=== PATIENT | female | born 1980 | race American Indian/Alaskan Native ===

== ENCOUNTER 2020-04-16 11:22 | Inpatient (IN) | payer OTHER, SELFPAY ==
[2020-04-16 13:48] LABS: Basophils % (Auto) 0.4 % (0.0-1.8); Eosinophils # (Auto) 0.1 K/mm3 (0.0-0.4); Hematocrit 31.6 % (30.3-42.9); Hemoglobin 10.3 gm/dl (10.1-14.3); Lymphocytes # (Auto) 1.3 K/mm3 (1.2-5.4); Lymphocytes % (Auto) 17.8 % (13.4-35.0); Mean Corpuscular HGB Conc 33 % (30-34); Mean Corpuscular Volume 71 fl (79-97); Monocytes # (Auto) 0.7 K/mm3 (0.0-0.8); Monocytes % (Auto) 9.7 % (0.0-7.3); Platelet Count 213 K/mm3 (140-440); Red Blood Count 4.45 M/mm3 (3.65-5.03); Red Cell Distribution Width 17.4 % (13.2-15.2)
[2020-04-16 14:18] LABS: Amphetamine Screen,Urine Negative; Benzodiazepines Screen,Urine Negative; Cannabinoid Screen,Urine Negative; Cocaine Screen,Urine Negative; Methadone Screen,Urine Negative; Opiate Screen,Urine Negative
[2020-04-16] MEDS ORDERED: OXYTOCIN 10 UNIT/1 ML INJ IM PRN (14:21)
[2020-04-16] MEDS ORDERED: ePHEDrine SULFATE 50 MG/1 ML INJ IV PRN ×2 (14:21→17:36)
[2020-04-16] MEDS ORDERED: CARBOPROST TROMETHAMINE 250 MCG/1 ML INJ IM PRN (14:21)
[2020-04-16] MEDS ORDERED: fentaNYL 100 MCG/2 ML INJ IV PRN (14:21)
[2020-04-16] MEDS ORDERED: ONDANSETRON 4 MG/2 ML INJ IV PRN ×2 (14:21→17:36)
[2020-04-16] MEDS ORDERED: ACETAMINOPHEN 325 MG TAB PO PRN (14:21)
[2020-04-16] MEDS ORDERED: TERBUTALINE 1 MG/1 ML INJ SUB-Q PRN ×2 (14:21→17:00)
[2020-04-16] MEDS ORDERED: MINERAL OIL 30 ML ORAL LIQD PO PRN (14:21)
[2020-04-16] MEDS ORDERED: miSOPROStol 200 MCG TAB PR PRN (14:21)
[2020-04-16] MEDS ORDERED: METHYLERGONOVINE MALEATE 0.2 MG/ML VIAL IM PRN (14:21)
[2020-04-16] MEDS ORDERED: LIDOCAINE (2%) 20 MG/1 ML VIAL 20 ML MDV INFILTRATI ONE ×2 (14:21→20:14)
--- NOTE | 2020-04-16 14:53 | History and Physical Report ---
History of Present Illness Date of examination: 04/16/20 Date of admission: 04/16/20 14:40 Chief complaint: IUP @37.3 admission for active labor, "I started having contractions every 5 minutes since this morning" History of present illness: Pt poor historian, limited history of present illness received. Pt unsure exactly which doctor or practice location she received care. Reports 3- 4 visits prior to stopping care in November Past History Past Medical History: asthma (pt reports one episode in 2017- Dx at that time with "pollen induced asthma", no ongoing care or Rx) Past Surgical History: no surgical history DISTRIBUTION ANALYST History: other (denies) Family/Genetic History: diabetes (maternal mother and aunt) Social history: no significant social history - Obstetrical History Expected Date of Delivery: 05/04/20 Actual Gestation: 37 Week(s) 3 Day(s) : 4 Para: 3 Hx # Term Pregnancies: 3 ( x3, denies delivery complications/PPH) Number of Pregnancies: 0 Spontaneous Abortions: 0 Induced : 0 Number of Living Children: 3 #1 Infant Gender: Female year: 2[birth year] ([place], [place]) Birthweight: 3.118 kg Method of Delivery: Vaginal (with epidural) Gestational age at delivery: 37 Complications: perineal laceration (with repair) #2 Gender: Female year: 2,[birth year] ([facility]) Birthweight: 3.09 kg Method of Delivery: Vaginal (with epidural) Gestational age at delivery: 36 Complications: perineal laceration (with repair) #3 Infant Gender: Female year: 2,[birth year] ([facility]) Birthweight: 2.722 kg Method of Delivery: Vaginal (with epidural) Gestational age at delivery: 36 Complications: perineal laceration (no repair needed) Medications and Allergies Allergies Allergy/AdvReac Type Severity Reaction Status Date / Time No Known Allergies Allergy Unverified 04/16/20 12:37 Active Meds: Active Medications Acetaminophen (Tylenol) 650 mg PO Q4H PRN PRN Reason: Pain, Mild (1-3) Carboprost Tromethamine (Hemabate) 250 mcg IM ONCE PRN PRN Reason: Uterine Bleeding Ephedrine Sulfate (Ephedrine Sulfate) 10 mg IV Q2M PRN PRN Reason: Hypotension Fentanyl (Sublimaze) 100 mcg IV Q2H PRN PRN Reason: Pain,Severe (7-10) LABOR PAIN Lactated Ringer's (Lactated Ringers) 1,000 mls @ 125 mls/hr IV DIRECT FAVIAN Oxytocin/Sodium Chloride (Pitocin/Ns 30 Unit/500ml) 30 units in 500 mls @ 40 mls/hr IV TITR FAVIAN; Protocol Methylergonovine Maleate (Methergine) 0.2 mg IM ONCE PRN PRN Reason: Uterine Bleeding Mineral Oil (Mineral Oil) 30 ml PO QHS PRN PRN Reason: Constipation Misoprostol (Cytotec) 800 mcg SC ONCE PRN PRN Reason: Uterine Bleeding Ondansetron HCl (Zofran) 4 mg IV Q8H PRN PRN Reason: Nausea And Vomiting Oxytocin (Pitocin) 10 unit IM ONCE PRN PRN Reason: Uterine Bleeding Terbutaline Sulfate (Brethine) 0.25 mg SUB-Q ONCE PRN PRN Reason: Hyperstimulation/Hypertonicity - Vital Signs Vital signs: Vital Signs Temp Resp 98.1 F 20 04/16/20 12:36 04/16/20 12:36 Temp Pulse Resp BP Pulse Ox 98.1 F 111 H 20 133/83 99 04/16/20 12:36 04/16/20 14:44 04/16/20 12:36 04/16/20 12:50 04/16/20 14:44 - Physical Exam Cardiovascular: Regular rate, Normal S1, Normal S2 Lungs: Positive: Clear to auscultation, Normal air movement Abdomen: Positive: normal appearance, soft Genitourinary (Female): Positive: normal external genitalia, normal perenium Vulva: both: normal Vagina: Positive: normal moisture Uterus: Positive: normal size, normal contour Anus/Rectum: Positive: normal perianal skin Extremities: Positive: normal - Obstetrical FHR: auscultation normal, category 1 Uterine Contraction Monitor Mode: External Cervical Dilatation: 5 (per RN) Uterine Contraction Frequency (min): 5 Uterine Contraction Pattern: Regular Uterine Contraction Intensity: Mild Results Result Diagrams: 04/16/20 13:00 Abnormal lab results 04/16/20 Range/Units 13:00 MCV 71 L (79-97) fl MCH 23 L (28-32) pg RDW 17.4 H (13.2-15.2) % [place] % (Auto) 9.7 H (0.0-7.3) % Seg Neutrophils % 70.1 H (40.0-70.0) % All other labs normal. Assessment and Plan Pt reports insignificant care course at [facility]" until November. Reports WILMA: 05/04/2020. Unable to locate facility to request pt records. Pt reports limited care due to fear of terrie COVID- 19. Reports labs and ultrasound mid- WNL. labs drawn and sent. weaving inspector reports SVE changed; now /-2 s/p 1 hour ambulation with contractions now Q5 mins. Plan to obtain US for EFW and presentation, treat GBS prophylactically, and anticipate delivery - Patient Problems (1) 37 weeks gestation of Current Visit: Yes Status: Acute (2) Active labor Current Visit: Yes Status: Acute Plan to address problem: epidural PRN, continue to treat GBS prophylactically; anticipate delivery (3) Supervision of with insufficient care Current Visit: Yes Status: Acute Plan to address problem: Labs sent. Plan to obtain US for EFW and presentation, treat GBS prophylactically, and anticipate delivery
[2020-04-16] MEDS ORDERED: OXYTOCIN DRIP 30 UNITS/500 ML BAG IV SCH (15:00)
[2020-04-16 15:02] LABS: Hepatitis C Virus Antibody Non-Reactive (NonReactive)
--- NOTE | 2020-04-16 16:48 | Progress Note ---
Assessment and Plan A:Patient IUP at 37.3 weeks gestation Cat 1 strip SVE 6.5/80/-3 soft midline BS ultrasound presentation vertex P: GBS treatment AMP q 4hrs IV LR@125cc/hr epidural at patients request Augmentation PRN with pitocin continuing monitoring anticipate vaginal delivery Subjective - Subjective Date of service: 04/16/20 (Active Labor) Patient reports: contractions Objective - Vital Signs Vital Signs: Vital Signs - 12hr 04/16/20 04/16/20 04/16/20 12:36 12:50 12:51 Temperature 98.1 F Pulse Rate 108 H 101 H Respiratory 20 Rate Blood Pressure 133/83 O2 Sat by Pulse 98 Oximetry 04/16/20 04/16/20 04/16/20 12:56 13:01 13:06 Temperature Pulse Rate 104 H 110 H 106 H Respiratory Rate Blood Pressure O2 Sat by Pulse 99 99 100 Oximetry 04/16/20 04/16/20 04/16/20 13:11 13:16 14:24 Temperature Pulse Rate 105 H 101 H 124 H Respiratory Rate Blood Pressure O2 Sat by Pulse 100 96 79 L Oximetry 04/16/20 04/16/20 04/16/20 14:29 14:34 14:39 Temperature Pulse Rate 114 H 114 H 111 H Respiratory Rate Blood Pressure O2 Sat by Pulse 99 97 99 Oximetry 04/16/20 04/16/20 04/16/20 14:44 14:49 14:54 Temperature Pulse Rate 111 H 107 H 109 H Respiratory Rate Blood Pressure O2 Sat by Pulse 99 100 99 Oximetry 04/16/20 04/16/20 04/16/20 14:59 15:04 15:09 Temperature Pulse Rate 104 H 100 H 98 H Respiratory Rate Blood Pressure O2 Sat by Pulse 99 97 99 Oximetry 04/16/20 04/16/20 04/16/20 15:14 15:19 16:12 Temperature Pulse Rate 110 H 109 H 105 H Respiratory Rate Blood Pressure 136/88 O2 Sat by Pulse 98 99 100 Oximetry 04/16/20 04/16/20 04/16/20 16:17 16:22 16:27 Temperature Pulse Rate 109 H 109 H 113 H Respiratory Rate Blood Pressure O2 Sat by Pulse 100 100 100 Oximetry 04/16/20 04/16/20 16:32 16:37 Temperature Pulse Rate 119 H 106 H Respiratory Rate Blood Pressure O2 Sat by Pulse 100 99 Oximetry - Exam Breasts: deferred Cardiovascular: Regular rate Lungs: Normal air movement Abdomen: Present: normal appearance, soft Vulva: both: normal FHR: category 1 Uterine Contraction Monitor Mode: External Cervical Dilatation: 6.5 Cervical Effacement Percentage: 80 station: -3 Uterine Contraction Frequency (min): 7 Uterine Contraction Duration: 90-120 Uterine Contraction Pattern: Regular Uterine Tone Measurement Phase: Resting Uterine Contraction Intensity: Moderate Extremities: normal - Labs Labs: Abnormal Labs 04/16/20 13:00 MCV 71 L MCH 23 L RDW 17.4 H [place] % (Auto) 9.7 H Seg Neutrophils % 70.1 H Laboratory Results - last 24 hr 04/16/20 04/16/20 04/16/20 13:00 13:00 13:00 WBC 7.1 RBC 4.45 Hgb 10.3 Hct 31.6 MCV 71 L MCH 23 L MCHC 33 RDW 17.4 H Plt Count 213 Lymph % (Auto) 17.8 [place] % (Auto) 9.7 H Eos % (Auto) 2.0 Baso % (Auto) 0.4 Lymph # (Auto) 1.3 [place] # (Auto) 0.7 Eos # (Auto) 0.1 Baso # (Auto) 0.0 Seg Neutrophils % 70.1 H Seg Neutrophils # 5.0 Urine Opiates Screen Urine Methadone Screen Ur Barbiturates Screen Ur Phencyclidine Scrn Ur Amphetamines Screen U Benzodiazepines Scrn Urine Cocaine Screen U Marijuana (THC) Screen Drugs of Abuse Note Syphilis IgG Antibody Hep Bs Antigen Non-reactive Hepatitis C Antibody Non-reactive HIV 1&2 Antibody Rapid HIV P24 Antigen Rubella IgG Antibody Immune Blood Type Antibody Screen 04/16/20 04/16/20 04/16/20 13:00 13:00 13:20 WBC RBC Hgb Hct MCV MCH MCHC RDW Plt Count Lymph % (Auto) [place] % (Auto) Eos % (Auto) Baso % (Auto) Lymph # (Auto) [place] # (Auto) Eos # (Auto) Baso # (Auto) Seg Neutrophils % Seg Neutrophils # Urine Opiates Screen Negative Urine Methadone Screen Negative Ur Barbiturates Screen Negative Ur Phencyclidine Scrn Negative Ur Amphetamines Screen Negative U Benzodiazepines Scrn Negative Urine Cocaine Screen Negative U Marijuana (THC) Screen Negative Drugs of Abuse Note Disclamer Syphilis IgG Antibody Nonreactive Hep Bs Antigen Hepatitis C Antibody HIV 1&2 Antibody Rapid Non react HIV P24 Antigen Non react Rubella IgG Antibody Blood Type Antibody Screen 04/16/20 13:20 WBC RBC Hgb Hct MCV MCH MCHC RDW Plt Count Lymph % (Auto) [place] % (Auto) Eos % (Auto) Baso % (Auto) Lymph # (Auto) [place] # (Auto) Eos # (Auto) Baso # (Auto) Seg Neutrophils % Seg Neutrophils # Urine Opiates Screen Urine Methadone Screen Ur Barbiturates Screen Ur Phencyclidine Scrn Ur Amphetamines Screen U Benzodiazepines Scrn Urine Cocaine Screen U Marijuana (THC) Screen Drugs of Abuse Note Syphilis IgG Antibody Hep Bs Antigen Hepatitis C Antibody HIV 1&2 Antibody Rapid HIV P24 Antigen Rubella IgG Antibody Blood Type B POSITIVE Antibody Screen Negative
[2020-04-16] MEDS ORDERED: AMPICILLIN/NS 2 GM/100 ML 2 GM/100 ML BAG IV SCH (17:00)
[2020-04-16] MEDS: LACTATED RINGERS 1,000 ML IV SCH ×2 (17:05→18:26)
[2020-04-16] MEDS ORDERED: NalbUPHINE 10 MG/1 ML INJ IV PRN (17:36)
[2020-04-16] MEDS ORDERED: diphenhydrAMINE 50 MG/ML VIAL IV PRN (17:36)
[2020-04-16] MEDS ORDERED: NALOXONE 2 MG/2 ML INJ IV PRN (17:36)
[2020-04-16] MEDS ORDERED: fentaNYL-BUPIV 2 MCG/ML-0.125% 200 MCG/100 ML BAG EPIDURAL SCH (18:00)
--- NOTE | 2020-04-16 18:20 | Anesthesia Consultation ---
Anesthesia Consult and Med Hx Date of service: 04/16/20 - Airway Anesthetic Teeth Evaluation: Good ROM Head & Neck: Adequate Mental/Hyoid Distance: Adequate Mallampati Class: Class III Intubation Access Assessment: Probably Good - Pulmonary Exam CTA: Yes - Cardiac Exam Cardiac Exam: RRR - Pre-Operative Health Status ASA Pre-Surgery Classification: ASA2 Proposed Anesthetic Plan: Epidural - Pulmonary Hx Smoking: No Hx Asthma: Yes (last used inhaler 2016) COPD: No Hx Pneumonia: No Hx Sleep Apnea: No - Cardiovascular System Hx Hypertension: No Hx Heart Attack/AMI: No Hx Angina: No - Central Nervous System Hx Seizures: No Hx Psychiatric Problems: No - Gastrointestinal Hx Gastroesophageal Reflux Disease: No - Endocrine Hx Renal Disease: No Hx End Stage Renal Disease: No Hx Insulin Dependent Diabetes: No Hx Non-Insulin Dependent Diabetes: No Hx Hypothyroidism: No Hx Hyperthyroidism: No - Hematic Hx Anemia: No Hx Sickle Cell Disease: No - Other Systems Hx Alcohol Use: No
--- NOTE | 2020-04-16 18:56 | Progress Note ---
Labor Epidural - Labor Epidural Start Time: 18:42 Stop Time: 18:55 Performed by:: RK CONNORS Procedure: Patient is requesting a laboring epidural for laboring pain. Patient IDed, H&P reviewed, all questions and concerns were answered, and consent was signed. Timeout was performed at bedside. Patient in sitting position. Sterile prep and drape was performed. 3ml of 1% lidocaine skin wheal at L[3]- L [4]. 18- gauge Touhy epidural needle was advanced to loss of resistance with air technique. Negative CSF negative blood. Epidural catheter advanced to [12] centimeters. [-] Aspiration [-] test dose. Sterile dressing applied. Patient tolerated procedure.
[2020-04-16 20:13] LABS: Alanine Aminotransferase 11 units/L (7-56); Uric Acid 4.8 mg/dL (3.5-7.6)
[2020-04-16] MEDS ORDERED: AMPICILLIN/NS 1 GM/50 ML 1 GM/50 ML BAG IV SCH (21:00)
--- NOTE | 2020-04-16 21:34 | Procedure Note ---
OB Delivery Note - Delivery Date of Delivery: 04/16/20 () Surgeon: OVI BRONSON (Shraddha Smith, [facility]) Estimated blood loss: 200cc - Vaginal Delivery presentation: vertex Delivery position: OA Intrapartum events: no care Delivery induction: none Delivery monitor: external FHT, external uterine Route of delivery: Delivery placenta: spontaneous (Intact) Delivery cord: 3 umbilical vessels Episiotomy: none Delivery laceration: none Delivery comments: of live female, 3291gm and 8/9. Delivered OA,no nuchal cord. Body delivered without difficulty. Cord clamped and cut after cessation. Baby [id number] then handed to DAMIEN nurse for assessment. Placenta delivered spontaneously and intact. Fundus firm, with minimum bleeding. Placenta appears intact with 3 vessel cord. Perineum and vagina inspected no lacerations. EBL 200ml hemostatis patient tolerated procedure well. Mom and baby stable and recovering in LDR. - A at 1 minute: 8 at 5 minutes: 9 Gender: Female (Baby Girl [place] 7lbs 4oz 19in in length)
--- NOTE | 2020-04-16 21:40 | Ultrasound Report ---
ULTRASOUND OBSTETRIC LIMITED INDICATION / CLINICAL INFORMATION: presentation. Clinical Gestational Age (GA): 37.3 weeks.days COMPARISON: None available. FINDINGS: HEART RATE (beats per minute): 135 PRESENTATION: Cephalic. ADDITIONAL FINDINGS: None. IMPRESSION: Single living intrauterine gestation in cephalic position. Signer Name: Ulises Szymanski MD Signed: 04/16/2020 9:39 PM Workstation Name: [id number]
[2020-04-17] MEDS ORDERED: diphenhydrAMINE 25 MG CAP PO PRN (03:10)
[2020-04-17] MEDS ORDERED: ACETAMINOPHEN 325 MG TAB PO PRN (03:10)
[2020-04-17] MEDS ORDERED: ONDANSETRON 4 MG/2 ML INJ IV PRN (03:10)
[2020-04-17] MEDS ORDERED: PROMETHAZINE 25 MG TAB PO PRN (03:10)
[2020-04-17] MEDS ORDERED: IBUPROFEN 800 MG TAB PO SCH (03:10)
[2020-04-17] MEDS ORDERED: MAGNESIUM HYDROXIDE (MOM) ORAL LIQD UDC PO PRN (03:10)
[2020-04-17] MEDS ORDERED: PROMETHAZINE 25 MG RECT SUPP PR PRN (03:10)
[2020-04-17] MEDS ORDERED: BENZOCAINE/MENTHOL 20/0.5% TOP SPRAY 56 GM TP PRN (03:10)
[2020-04-17] MEDS ORDERED: WITCH HAZEL/ GLYCERIN PAD TP PRN (03:10)
[2020-04-17] MEDS ORDERED: LANOLIN/ZINC/DIMETHICONE (LANSINOH) 7 GM TP PRN (03:10)
[2020-04-17 09:36] LABS: Hematocrit 26.1 % (30.3-42.9); Hemoglobin 8.6 gm/dl (10.1-14.3)
--- NOTE | 2020-04-17 10:07 | Post Anesthesia Evaluation ---
- Post Anesthesia Evaluation Patient Participated: Yes Airway Patent: Yes Stable Respiratory Function: Yes Nausea/Vomiting: No Temp > 96.8F: Yes Pain Manageable: Yes Adequeate Hydration: Yes Anesthesia Complications: No Block Receding Appropriately: Yes Patient on Ventilator: No
[2020-04-17 10:30] LABS: Bacteria,Urine 1+ /HPF (Negative); Bilirubin,Urine NEG (Negative); Blood,Urine MOD (Negative); Color,Urine Yellow (Yellow); Mucus,Urine FEW /HPF; Protein,Urine <15 mg/dL mg/dL (Negative)
[2020-04-17 10:48] LABS: RBC,Urine > 182.0 /HPF (0.0-6.0)
--- NOTE | 2020-04-17 14:37 | Progress Note ---
Assessment and Plan A: 40 y.o. s/p @ term, limited PNC. Stable . P: Continue with care. Case management to see pt before discharge home. Anticipate discharge home in the AM. Subjective - Subjective Date of service: 04/17/20 (Pt doing well at this time. ) Principal diagnosis: s/p limited PNC Patient reports: appetite normal, voiding normally, pain well controlled, flatus, ambulating normally : doing well Objective - Vital Signs Latest vital signs: Vital Signs Temp Pulse Resp BP BP Pulse Ox 04/17/20 07:50 98 F 97 H 18 99/73 04/16/20 21:55 97.7 F 16 04/16/20 21:51 96 H 122/79 04/16/20 21:21 102 H 120/56 04/16/20 21:11 109 H 155/66 04/16/20 21:04 109 H 100 04/16/20 21:03 67 84 04/16/20 20:59 101 H 100 04/16/20 20:54 104 H 100 04/16/20 20:51 94 H 103/58 04/16/20 20:49 94 H 100 04/16/20 20:44 103 H 100 04/16/20 20:39 97 H 100 04/16/20 20:34 90 100 04/16/20 20:29 103 H 100 04/16/20 20:26 68 90 04/16/20 20:24 101 H 100 04/16/20 20:19 110 H 112/61 100 04/16/20 20:14 105 H 100 04/16/20 20:11 100 H 117/70 04/16/20 20:09 111 H 100 04/16/20 20:06 102 H 120/73 04/16/20 20:04 112 H 100 04/16/20 20:01 100 H 121/69 04/16/20 19:59 102 H 100 04/16/20 19:56 101 H 121/69 04/16/20 19:54 98 H 100 04/16/20 19:51 104 H 122/71 04/16/20 19:49 102 H 100 04/16/20 19:47 108 H 119/71 04/16/20 19:44 108 H 100 04/16/20 19:41 106 H 118/72 11/17/20 19:39 108 H 100 17/20 19:36 110 H 122/81 1720 19:34 116 H 100 17/20 19:31 116 H 120/82 20 19:30 98.5 F 18 20 19:29 112 H 100 20 19:26 120 H 122/76 20 19:24 111 H 99 20 19:23 121 H 77 L 20 19:21 109 H 120/67 20 19:19 118 H 100 20 19:16 114 H 120/80 20 19:14 109 H 100 20 19:09 127 H 100 20 19:08 118 H 154/85 20 19:07 130 H 170/97 04/16/20 19:04 150 H 100 20 19:00 115 H 132/77 20 18:59 115 H 136/82 100 20 18:57 117 H 145/83 20 18:55 111 H 139/77 20 18:53 111 H 100 17/20 18:52 107 H 151/88 20 18:50 109 H 147/88 87 17/20 18:48 108 H 139/92 20 18:47 109 H 100 17/20 18:42 110 H 100 17/20 18:39 65 92 17/20 18:37 103 H 100 17/20 18:32 112 H 100 17/20 18:30 97.8 F 18 20 18:27 106 H 100 17/20 18:25 101 H 142/84 17/20 18:22 106 H 100 17/20 18:17 108 H 100 17/20 18:12 104 H 100 17/20 18:07 102 H 99 17/20 18:02 111 H 100 17/20 17:57 106 H 100 17/20 17:52 109 H 100 17/20 17:47 105 H 98 17/20 17:42 107 H 99 11/17/20 17:37 112 H 98 04/16/20 17:32 104 H 98 04/16/20 17:27 102 H 98 04/16/20 17:22 117 H 99 04/16/20 17:17 105 H 98 04/16/20 17:12 102 H 98 04/16/20 17:07 109 H 98 04/16/20 17:02 101 H 99 04/16/20 16:57 105 H 98 04/16/20 16:52 104 H 98 04/16/20 16:47 101 H 99 04/16/20 16:42 103 H 98 04/16/20 16:37 106 H 99 04/16/20 16:32 119 H 100 04/16/20 16:27 113 H 100 04/16/20 16:22 109 H 100 04/16/20 16:17 109 H 100 04/16/20 16:12 105 H 136/88 100 04/16/20 15:19 109 H 99 04/16/20 15:14 110 H 98 04/16/20 15:09 98 H 99 04/16/20 15:04 100 H 97 04/16/20 14:59 104 H 99 04/16/20 14:54 109 H 99 04/16/20 14:49 107 H 100 04/16/20 14:44 111 H 99 04/16/20 14:39 111 H 99 Intake and Output 04/16/20 04/17/20 04/17/20 22:59 06:59 14:59 Intake Total 168.75 300 320 Output Total 1400 Balance 168.75 -1100 320 Intake: IV 168.75 Lactated Ringers 1,000 ml 168.75 @ 125 mls/hr IV DIRECT FAVIAN Rx#:[id number] Oral 320 Intake, Free Water 300 Output: Urine 1400 Void 1400 Other: Total, Intake Amount 320 Total, Output Amount 800 # Voids Void 1 Estimated Blood Loss 200 - Exam Narrative Exam: Pt is doing well. Will order case management d/t no PNC since November. Pt aware to just to make sure that she is okay and safe at home. Pt verbalized understanding. Breasts: Present: deferred Cardiovascular: Present: Regular rate Lungs: Present: Normal air movement Abdomen: Present: normal appearance, soft Vulva: both: normal Uterus: Present: normal, firm Extremities: Present: normal Deep Tendon Reflex Grade: Normal +2 - Labs Labs: Abnormal lab results 04/16/20 04/17/20 04/17/20 Range/Units 13:00 09:06 10:03 Hgb 8.6 L (10.1-14.3) gm/dl Hct 26.1 L (30.3-42.9) % Creatinine 0.5 L (0.6-1.2) mg/dL Lactate Dehydrogenase 208 H (91-180) units/L Urine WBC (Auto) 8.0 H (0.0-6.0) /HPF
[2020-04-17] MEDS: IBUPROFEN 800 MG TAB PO SCH (16:06)
--- NOTE | 2020-04-17 19:46 | XRay Report ---
CHEST 1 VIEW 04/17/2020 7:17 PM INDICATION / CLINICAL INFORMATION: chest pain. COMPARISON: None available. FINDINGS: SUPPORT DEVICES: None. HEART / MEDIASTINUM: Borderline heart size. LUNGS / PLEURA: No significant pulmonary or pleural abnormality. No pneumothorax. ADDITIONAL FINDINGS: No significant additional findings. IMPRESSION: Borderline heart size. Signer Name: Eben Lobo MD Signed: 04/17/2020 7:46 PM Workstation Name: [id number]
--- NOTE | 2020-04-17 19:50 | Event Note ---
Date: 04/17/20 (Pt with c/o chest pain and pressure) Pt with c/o chest pain and pressure that started tonight. States that the chest yates initially was sharp in nature with pressure. Now it is more like "something is siting there." Also of note her blood pressure was noted to be elevated, 142/91 with a pulse of 102. Pt contributes this to possibly the pain she is having. Denies hx of HTN, but states that she did have elevated blood pressures after the delivery of her other children. Her blood pressures have been in the ranges of 120's/70's during this admission with the until she started having chest pain. Exam: radial and pedial pulses palpable, cap refill less than 3 seconds, heart rate regular rhythm, no murmurs heard. Consulted with Dr. Colin. Will order EKG, chest x-ray, and labs stat. Also Explained this to patient and she agreed and verbalized understanding.
[2020-04-17] MEDS ORDERED: FAMOTIDINE 20 MG TAB PO ONE (20:10)
[2020-04-17 20:24] LABS: Hematocrit 28.9 % (30.3-42.9); Hemoglobin 9.4 gm/dl (10.1-14.3); Mean Corpuscular HGB Conc 32 % (30-34); Mean Corpuscular Volume 71 fl (79-97); Platelet Count 217 K/mm3 (140-440); Red Blood Count 4.04 M/mm3 (3.65-5.03)
[2020-04-17 20:42] LABS: Alanine Aminotransferase 11 units/L (7-56); Uric Acid 4.6 mg/dL (3.5-7.6)
[2020-04-17 23:34] LABS: Bilirubin,Urine NEG (Negative); Blood,Urine NEG (Negative); Color,Urine Yellow (Yellow); Mucus,Urine FEW /HPF; Protein,Urine <15 mg/dL mg/dL (Negative); WBC,Urine < 1.0 /HPF (0.0-6.0)
[2020-04-18] MEDS ORDERED: DIPHtheria,PERTUSSIS(ACELL),TETANUS VACCINE/PF 0.5 ML VIAL IM ONE (06:00)
[2020-04-18] MEDS: IBUPROFEN 800 MG TAB PO SCH ×5 (06:00→23:45)
--- NOTE | 2020-04-18 08:42 | Discharge Summary ---
Providers - Providers Date of Admission: 04/16/20 14:40 Date of discharge: 04/18/20 (Pt agrees with D/C home today) Attending physician: OVI BRONSON 04/17/20 03:10 Consult to Director Data Architecture [CONS] Routine Reason For Exam: assistance with , SNS 04/17/20 16:58 Consult to Case Management [CONS] Routine Services Needed at Discharge: Other Notified:: Case management Additional Physician Instructions: Pt with limited PNC, assess for social situation before discharge home. Primary care physician: BUSINESS RESILIENCY MANAGER Hospitalization Reason for admission: active labor (Limited PNC), IUP at term Delivery: Episiotomy: none Laceration: none Other procedures: none complications: other (c/o chest pain) Discharge diagnosis: IUP at term delivered [place] baby: female Pertinent studies: Post-delivery H/H 02/25 Hospital course: 40 y.o. female, , limited PNC at 37wks. Uncomplicated . C/O chest pain PP with normal f/u labs, EKG, and chest x-ray showing borderline heart size. No history of cardiac conditions per pt. P: Awaiting echo f/u and case management for limited PNC. Pending negative results plan for D/C home today. Condition at discharge: Good Disposition: DC-01 TO HOME OR SELFCARE - Discharge Diagnoses (1) (normal spontaneous vaginal delivery) Status: Acute Comment: Pt sitting in bed holding . No visible s/s of distress. Reports continued heaviness in chest and lightheadedness with prolonged standing. Denies vision changes, chest pain, and SOB. Lungs clear on auscultation bilaterally. S1S2 heard, no mumurs present. VSSAF. HR does remain between 90-100s. Normal EKG. Labs WNL. Chest x-ray showing borderline heart size. No cardiac history per pt. Ambulating and voiding without difficulty. Fundus firm at umbilicus. Light bleeding seen. Breast and formula feeding without difficulty. Undecided re: PP contraception. P: Awaiting echo and case management consult for limited PNC. Pending negative echo results plan for pt to be D/C home today. F/U in 4 wks for PPV. Plan - Provider Discharge Summary Activity: no sex for 6 weeks, no heavy lifting 4 weeks, no strenuous exercise Diet: routine Instructions: routine Additional instructions: [] Smoking cessation referral if applicable(refer to patient education folder for contact #) [] Refer to [facility]'s [facility] Booklet Call your doctor immediately for: * Fever > 100.5 * Heavy vaginal bleeding ( >1 pad per hour) * Severe persistent headache * Shortness of breath * Reddened, hot, painful area to leg or breast * Drainage or odor from incision. * Keep incision clean and dry at all times and follow doctor's instructions regarding bathing/showering - Follow up plan Follow up: PRIMARY CARE, [Primary Care Provider] - 7 Days (Congratulations! Please contact our office at [phone] to schedule your 4-week visit. Feel free to contact us with any questions or concerns. )
[2020-04-18] MEDS: FAMOTIDINE 20 MG TAB PO SCH (10:43)
--- NOTE | 2020-04-18 17:43 | Event Note ---
Date: 04/18/20 Received call from RN patient with elevated bp, denies c/o [place], visual disturbances or chest pain. Will obtain [facility] labs and hold dischaarge for now.
[2020-04-18 19:16] LABS: Basophils % (Auto) 0.5 % (0.0-1.8); Eosinophils # (Auto) 0.2 K/mm3 (0.0-0.4); Eosinophils % (Auto) 2.8 % (0.0-4.3); Hematocrit 30.2 % (30.3-42.9); Hemoglobin 9.7 gm/dl (10.1-14.3); Lymphocytes # (Auto) 2.2 K/mm3 (1.2-5.4); Lymphocytes % (Auto) 28.1 % (13.4-35.0); Mean Corpuscular HGB Conc 32 % (30-34); Mean Corpuscular Volume 72 fl (79-97); Monocytes # (Auto) 0.7 K/mm3 (0.0-0.8); Monocytes % (Auto) 8.4 % (0.0-7.3); Platelet Count 231 K/mm3 (140-440); Red Blood Count 4.22 M/mm3 (3.65-5.03); Red Cell Distribution Width 17.6 % (13.2-15.2)
[2020-04-18 19:29] LABS: BUN/Creatinine Ratio 12; Blood Urea Nitrogen 6 mg/dL (7-17); Calcium 9.2 mg/dL (8.4-10.2); Hemolysis Index 0
--- NOTE | 2020-04-19 08:08 | Progress Note ---
Assessment and Plan A: 40 y.o. s/p , 3 days. Now with no chest pain or pressure. P: Consult placed for Cardiology. Awaiting cardiology recommendations. From OB standpoint, stable for discharge home. Subjective - Subjective Date of service: 04/19/20 (Pt doing well. ) Principal diagnosis: s/p limited PNC Patient reports: appetite normal, voiding normally, dizzy ambulation, flatus, ambulating normally [place]: doing well Objective - Vital Signs Latest vital signs: Vital Signs Temp Pulse Resp BP BP Pulse Ox 04/19/20 05:00 98.1 F 85 20 123/81 98 04/19/20 01:14 98.2 F 92 H 18 132/77 100 04/18/20 18:27 18 04/18/20 18:08 98 H 148/80 04/18/20 16:04 20 155/93 Intake and Output 04/18/20 04/19/20 04/19/20 22:59 06:59 14:59 Intake Total 120 Balance 120 Intake: Oral 120 Other: Total, Intake Amount 120 - Exam Narrative Exam: Pt denies chest pain and pressure this AM. Breasts: Present: deferred Cardiovascular: Present: Regular rate, Normal S1, Normal S2 Lungs: Present: Clear to auscultation Abdomen: Present: normal appearance, soft, normal bowel sounds Vulva: both: normal Uterus: Present: normal, firm Extremities: Present: normal Deep Tendon Reflex Grade: Normal +2 - Labs Labs: Abnormal lab results 04/18/20 04/18/20 Range/Units 18:50 18:50 Hgb 9.7 L (10.1-14.3) gm/dl Hct 30.2 L (30.3-42.9) % MCV 72 L (79-97) fl MCH 23 L (28-32) pg RDW 17.6 H (13.2-15.2) % [place] % (Auto) 8.4 H (0.0-7.3) % BUN 6 L (7-17) mg/dL Creatinine 0.5 L (0.6-1.2) mg/dL Glucose 112 H (65-100) mg/dL
[2020-04-19] MEDS: FAMOTIDINE 20 MG TAB PO SCH (09:46)
[2020-04-19 10:24] VITALS: BP 133/80
--- NOTE | 2020-04-19 10:51 | Consultation ---
History of Present Illness Consult date: 04/19/20 Requesting physician: TAMIKA HAYES Consult reason: chest pain History of present illness: The pt is a 40 YO female with a past medical history of HTN. She is previously unknown to our practice. She presented on 04/16 with c/o contractions and subsequently delivered her baby vaginally. On the evening of 04/17, she c/o chest pain and thus cardiology has been consulted. She states the she was lying in bed when the chest pain began. She describes the chest pain as a midsternal pressure which lasted for several hours and then resolved. She is currently chest pain free. She denies any SOB, palpitations, n/v, diaphoresis, dizziness or syncope. She denies any known prior cardiac issues. Past History Past Medical History: hypertension Social history: no significant social history Medications and Allergies Allergies Allergy/AdvReac Type Severity Reaction Status Date / Time No Known Allergies Allergy Unverified 04/16/20 12:37 Home Medications Medication Instructions Recorded Confirmed Last Taken Type No Known Home Medications [No 04/17/20 04/17/20 Unknown History Reported Home Medications] Active Meds: Active Medications Acetaminophen (Tylenol) 1,000 mg PO Q6H PRN PRN Reason: Pain MILD(1-3)/Fever >100.5/MULLIGAN Benzocaine/Menthol (Dermoplast) 1 spray TP PRN PRN PRN Reason: Episiotomy Pain Bisacodyl (Dulcolax) 10 mg PA BID PRN PRN Reason: Constipation Carboprost Tromethamine (Hemabate) 250 mcg IM ONCE PRN PRN Reason: Uterine Bleeding Diphenhydramine HCl (Benadryl) 25 mg PO Q6H PRN PRN Reason: Itching Famotidine (Pepcid) 20 mg PO QDAY [facility] Last Admin: 04/19/20 09:46 Dose: 20 mg Documented by: Ibuprofen (Ibuprofen) 800 mg PO Q6HR [facility] Last Admin: 04/18/20 23:45 Dose: 800 mg Documented by: Magnesium Hydroxide (Milk Of Magnesia) 30 ml PO HS PRN PRN Reason: Constipation Methylergonovine Maleate (Methergine) 0.2 mg IM ONCE PRN PRN Reason: Uterine Bleeding Misoprostol (Cytotec) 800 mcg PA ONCE PRN PRN Reason: Uterine Bleeding Multi-Ingredient Ointment (Lansinoh) 1 applic TP PRN PRN PRN Reason: Sore Nipples Ondansetron HCl (Zofran) 4 mg IV Q8H PRN PRN Reason: Nausea And Vomiting Promethazine HCl (Phenergan) 25 mg PA Q6H PRN PRN Reason: Nausea And Vomiting Promethazine HCl (Phenergan) 25 mg PO Q6H PRN PRN Reason: Nausea And Vomiting Witch [place]/Glycerin (Tucks Pad) 1 each TP PRN PRN PRN Reason: Hemorrhoid/cleansing/soothing Review of Systems Constitutional: no weight loss, no weight gain, no fever, no chills, no sweats Ears, nose, mouth and throat: no ear pain, no nose pain, no sinus pressure, no sinus pain Cardiovascular: chest pain, no orthopnea, no palpitations, no rapid/irregular heart beat, no edema, no syncope, no lightheadedness, no shortness of breath, no dyspnea on exertion Respiratory: no cough, no shortness of breath, no dyspnea on exertion, no congestion, no wheezing, no pain on inspiration Gastrointestinal: no nausea, no vomiting, no diarrhea, no constipation, no change in bowel habits Genitourinary Female: no flank pain, no dysuria, no urinary frequency, no urgency Musculoskeletal: no neck stiffness, no neck pain Integumentary: no rash, no pruritis, no redness, no sores, no wounds Neurological: no head injury, no paralysis, no weakness, no parathesias, no numbness, no tingling, no seizures, no syncope Psychiatric: no anxiety Endocrine: no cold intolerance, no heat intolerance Hematologic/Lymphatic: no easy bruising, no easy bleeding Allergic/Immunologic: no urticaria Physical Examination Vital Signs Temp Resp 98.1 F 20 04/16/20 12:36 04/16/20 12:36 General appearance: no acute distress HEENT: Positive: PERRL, Normocephaly, Mucus Membranes Moist Neck: Positive: neck supple, trachea midline Cardiac: Positive: Reg Rate and Rhythm, S1/S2 Lungs: Positive: Decreased Breath Sounds Neuro: Positive: Grossly Intact Abdomen: Positive: Soft Skin: Negative: Rash Musculoskeletal: No Pain Extremities: Absent: edema Results 04/18/20 18:50 04/18/20 18:50 Cardiac Enzymes 04/18/20 Range/Units 18:50 AST 23 (5-40) units/L CBC 04/18/20 Range/Units 18:50 WBC 7.7 (4.5-11.0) K/mm3 RBC 4.22 (3.65-5.03) M/mm3 Hgb 9.7 L (10.1-14.3) gm/dl Hct 30.2 L (30.3-42.9) % Plt Count 231 (140-440) K/mm3 Lymph # (Auto) 2.2 (1.2-5.4) K/mm3 Rincon # (Auto) 0.7 (0.0-0.8) K/mm3 Eos # (Auto) 0.2 (0.0-0.4) K/mm3 Baso # (Auto) 0.0 (0.0-0.1) K/mm3 Comprehensive Metabolic Panel 04/18/20 Range/Units 18:50 Sodium 138 (137-145) mmol/L Potassium 3.6 (3.6-5.0) mmol/L Chloride 103.2 (98-107) mmol/L Carbon Dioxide 23 (22-30) mmol/L BUN 6 L (7-17) mg/dL Creatinine 0.5 L (0.6-1.2) mg/dL Glucose 112 H (65-100) mg/dL Calcium 9.2 (8.4-10.2) mg/dL AST 23 (5-40) units/L - Imaging and Cardiology Echo: report reviewed EKG: report reviewed, image reviewed EKG interpretations - Telemetry EKG Rhythm: Sinus Rhythm - EKG Sinus rhythms and dysrhythmias: sinus rhythm Assessment and Plan Chest pain currently resolved. ECG with NAF, aRad negative for AMI x 1 set. tte reviewed - EF 50-55%, mild LVH, diastolic dysfunction, LA mod dilated, mild MR. Currently stable cardiac status. Obtain second set of Raad and pending labwork is WNL, pt may discharge from cardiology standpoint. Can consider OP stress testing. Recommend pt follow up in our office with Dr. Weber within 2 weeks of discharg e ([phone]). The patient has been seen in conjunction with Dr. Weber who agrees with the as sessment and plan of care. - Patient Problems (1) Chest pain Current Visit: Yes Status: Resolved (2) (normal spontaneous vaginal delivery) Current Visit: Yes Status: Acute (3) HTN (hypertension) Current Visit: Yes Status: Chronic
[2020-04-19] MEDS: IBUPROFEN 800 MG TAB PO SCH (12:08)
--- NOTE | 2020-04-19 13:32 | Event Note ---
Date: 04/19/20 (Pt left AMA.) Pt is a 40 y.o. who was s/p who had c/o chest pain about 10 hours post delivery. An EKG, Echo, and labs and cardiology consult was ordered. Cardiology evaluated pt and wanted a troponin before discharge home. Was informed by the RN that pt left AMA before the lab could be drawn.
== END 2020-04-19 12:44 | disposition home or self-care (01) | DRG 807 ==
LOC: TRG 11:22 → APU 11:24 → TRG 14:39 → APU 14:40 → LD 16:39 → OB 04-17 02:42
PROVIDERS: ADMIT Obstetrics & Gynecology; ATTEND Obstetrics & Gynecology
PROC: 10E0XZZ Delivery of Products of Conception, External Approach (ICD-10-PCS; principal; 2020-04-16)
PROC: 10907ZC Drainage of Amniotic Fluid, Therapeutic from Products of Conception, Via Natural or Artificial Opening (ICD-10-PCS; 2020-04-16)
PROC: 3E0R3BZ Introduction of Anesthetic Agent into Spinal Canal, Percutaneous Approach (ICD-10-PCS; 2020-04-16)
PROC: 00HU33Z Insertion of Infusion Device into Spinal Canal, Percutaneous Approach (ICD-10-PCS; 2020-04-16)
PROC: 3E0234Z Introduction of Serum, Toxoid and Vaccine into Muscle, Percutaneous Approach (ICD-10-PCS; 2020-04-18)
DX: O16.4 Unspecified maternal hypertension, complicating childbirth (principal); Z37.0 Single live birth; Z3A.37 37 weeks gestation of pregnancy; Z20.828 Contact with and (suspected) exposure to other viral communicable diseases; Z23 Encounter for immunization; Z83.3 Family history of diabetes mellitus
CPT/HCPCS: 36415; 59025; 71045; 76815; 80048; 80307; 81001; 82565; 83615; 84132; 84450; 84460; 84484; 84550; 85014; 85018; 85025; 85027; 86592; 86706; 86762; 86803; 86850; 86900; 86901; 87591; 87806; 93005; 93306; 96360; 96365; 96366; G0378; J0290; J7120; U0003

== ENCOUNTER 2021-11-07 02:17 | Inpatient (IN) | payer SELFPAY ==
[2021-11-07] MEDS ORDERED: CARBOPROST TROMETHAMINE 250 MCG/1 ML INJ IM PRN (05:20)
[2021-11-07] MEDS ORDERED: TERBUTALINE 1 MG/1 ML INJ SUB-Q PRN (05:20)
[2021-11-07] MEDS ORDERED: LOPERAMIDE 2 MG CAP PO PRN (05:20)
[2021-11-07] MEDS ORDERED: ePHEDrine SULFATE 50 MG/1 ML INJ IV PRN (05:20)
[2021-11-07] MEDS ORDERED: OXYTOCIN 10 UNIT/1 ML INJ IM PRN (05:20)
[2021-11-07] MEDS ORDERED: METHYLERGONOVINE MALEATE 0.2 MG/ML VIAL IM PRN (05:20)
[2021-11-07] MEDS ORDERED: miSOPROStol 200 MCG TAB PR PRN (05:20)
[2021-11-07] MEDS ORDERED: ACETAMINOPHEN 325 MG TAB PO PRN ×2 (05:25→20:08)
[2021-11-07] MEDS ORDERED: BUTORPHANOL 2 MG/1 ML INJ IV PRN (05:25)
[2021-11-07] MEDS ORDERED: OXYTOCIN DRIP 30 UNITS/500 ML BAG IV SCH ×3 (06:00→20:08)
--- NOTE | 2021-11-07 06:06 | Ultrasound Report ---
ULTRASOUND OBSTETRIC INDICATION / CLINICAL INFORMATION: Labor. Clinical Gestational Age (GA): 42 week 4 day TECHNIQUE: Transabdominal. COMPARISON: None available. FINDINGS: There is a single intrauterine . Biparietal Diameter = 9.5 cm = 38 weeks, 6 day(s). Head Circumference = 32 cm = 36 weeks, 1 day(s). Abdominal Circumference = 35.6 cm = 39 weeks, 4 day(s). Femur Length = 7.4 cm = 38 weeks, 0 day(s). Average Ultrasound Age (AUA) = 38 weeks, 1 day(s). Heart Rate: 164 beats per minute. Estimated Weight in grams (if calculated): 3577 Estimated Weight Growth Percentile (if calculated): Position: breech. Cervix: closed. Length in cm (if measured): Placenta: anterior and free of the os. Amniotic Fluid Volume: decreased Amniotic Fluid Index (TIFF) in cm (if calculated): 1.3. Maternal Adnexa: No significant abnormality. IMPRESSION: 1. Single, living intrauterine with estimated sonographic age of 38 weeks, 1 day(s). 2. Oligohydramnios Signer Name: Nain Greer MD Signed: 11/07/2021 6:02 AM Workstation Name: [id number]
--- NOTE | 2021-11-07 06:08 | Ultrasound Report ---
ULTRASOUND BIOPHYSICAL PROFILE INDICATION: no care. COMPARISON: None available. FINDINGS: BREATHING MOVEMENT = 2 GROSS BODY MOVEMENT = 2 TONE = 2 QUALITATIVE AMNIOTIC FLUID VOLUME = 0 TOTAL BIOPHYSICAL SCORE = 11/05 AMNIOTIC FLUID INDEX (cm) = 1.3 PRESENTATION: Breech. HEART RATE (beats per minute): 164 IMPRESSION: 1. biophysical profile = 11/05 Signer Name: Nain Greer MD Signed: 11/07/2021 6:03 AM Workstation Name: [id number]
[2021-11-07] MEDS: LACTATED RINGERS 1,000 ML IV SCH ×3 (06:11→14:29)
--- NOTE | 2021-11-07 07:59 | History and Physical Report ---
History of Present Illness Date of examination: 11/07/21 Date of admission: 11/07/2021 Chief complaint: Lost mucous plug, Pain History of present illness: 41 y/o at 43-3/7 weeks gestation reports that she lost her mucous plug and had abdominal pain. No VB, LOF, or CTX. Good FM. She has no care. EDC provided in the 1st trimester by a EQUINE INTERN in [facility]. OB US in OBT revealed fetus is breech position with TIFF= 1.3. In lieu of new diagnosis of oligohydramnios, breech presentation, and post-term , primary is recommended. The R/A/B were exlpained. The patient wishes to proceed with this plan. Past History Past Medical History: no pertinent history Past Surgical History: no surgical history Family/Genetic History: none Social history: no significant social history - Obstetrical History Expected Date of Delivery: 10/14/21 Actual Gestation: 43 Week(s) 3 Day(s) : 4 Para: 3 Hx # Term Pregnancies: 3 Medications and Allergies Allergies Allergy/AdvReac Type Severity Reaction Status Date / Time No Known Allergies Allergy Unverified 04/16/20 12:37 Home Medications Medication Instructions Recorded Confirmed Last Taken Type No Known Home Medications [No 04/17/20 04/17/20 Unknown History Reported Home Medications] Active Meds: Active Medications Acetaminophen (Acetaminophen 325 Mg Tab) 650 mg PO Q4H PRN PRN Reason: Pain, Mild (1-3) Butorphanol Tartrate (Butorphanol 2 Mg/1 Ml Inj) 1 mg IV Q2H PRN PRN Reason: Pain, Moderate(4-6) LABOR PAIN Carboprost Tromethamine (Carboprost Tromethamine 250 Mcg/1 Ml Inj) 250 mcg IM ONCE PRN PRN Reason: Uterine Bleeding Ephedrine Sulfate (Ephedrine Sulfate 50 Mg/1 Ml Inj) 10 mg IV Q2M PRN PRN Reason: Hypotension Lactated Ringer's (Lactated Ringers) 1,000 mls @ 125 mls/hr IV DIRECT [facility] Last Admin: 11/07/21 06:11 Dose: 125 mls/hr Oxytocin/Sodium Chloride (Pitocin/Ns 30 Unit/500ml) 30 units in 500 mls @ 40 mls/hr IV TITR [facility]; Protocol Loperamide HCl (Loperamide 2 Mg Cap) 2 mg PO ONCE PRN PRN Reason: give with Hemabate Methylergonovine Maleate (Methylergonovine Maleate 0.2 Mg/Ml Vial) 0.2 mg IM ONCE PRN PRN Reason: Uterine Bleeding Misoprostol (Misoprostol 200 Mcg Tab) 800 mcg MO ONCE PRN PRN Reason: Uterine Bleeding Oxytocin (Oxytocin 10 Unit/1 Ml Inj) 10 unit IM ONCE PRN PRN Reason: Uterine Bleeding Terbutaline Sulfate (Terbutaline 1 Mg/1 Ml Inj) 0.25 mg SUB-Q ONCE PRN PRN Reason: Hyperstimulation/Hypertonicity Review of Systems All systems: negative - Physical Exam Breasts: Positive: normal Cardiovascular: Regular rate Lungs: Positive: Normal air movement Abdomen: Positive: normal appearance Genitourinary (Female): Positive: normal external genitalia, normal perenium Vulva: both: normal Vagina: Positive: normal moisture Uterus: Positive: enlarged Adnexa: both: normal Anus/Rectum: Positive: normal perianal skin, hemorrhoids Extremities: Positive: normal Deep Tendon Reflex Grade: Normal +2 - Obstetrical FHR: category 1 Uterine Contraction Pattern: Irregular Results All other labs normal. Ultrasound: report reviewed (Breech. EFW= 3577 g. TIFF= 1.3 cm. ), image reviewed Assessment and Plan - Patient Problems (1) 42 or more weeks gestation of Current Visit: Yes Status: Acute Plan to address problem: This patient has no care. panel is ordered. (2) Post-term Current Visit: Yes Status: Acute Plan to address problem: I recommend delivery. (3) Encounter for maternal care for breech presentation in [place] Current Visit: Yes Status: Acute Plan to address problem: Route of delivery is primary . (4) Oligohydramnios in third trimester Current Visit: Yes Status: Acute Plan to address problem: TIFF= 1.3 cm. Etiology is unknown at this time, but I suspect that post-term is the likely cause. I recommend delivery. (5) AMA (advanced maternal age) multigravida 35+ Current Visit: Yes Status: Acute Plan to address problem: This patient has not been seen by MFM.
[2021-11-07] MEDS ORDERED: FAMOTIDINE 20 MG/2 ML INJ IV ONE ×2 (08:04→12:33)
[2021-11-07] MEDS ORDERED: METOCLOPRAMIDE 10 MG/2 ML INJ IV ONE (08:04)
[2021-11-07] MEDS ORDERED: BICITRA ORAL LIQD 30ML PO ONE (08:04)
[2021-11-07 08:40] LABS: Hematocrit 32.3 % (30.3-42.9); Hemoglobin 10.6 gm/dl (10.1-14.3); Mean Corpuscular HGB Conc 33 % (30-34); Mean Corpuscular Volume 76 fl (79-97); Platelet Count 201 K/mm3 (140-440); Red Blood Count 4.27 M/mm3 (3.65-5.03); Red Cell Distribution Width 16.7 % (13.2-15.2)
[2021-11-07] MEDS ORDERED: ceFAZolin/Water 2 GM/20 ML 2 GM/20 ML SYRINGE IV NR (09:00)
[2021-11-07] MEDS ORDERED: METOCLOPRAMIDE 10 MG/2 ML INJ ONE (12:33)
[2021-11-07] MEDS ORDERED: ceFAZolin/NS 1 GM/50 ML 1 GM/50 ML BAG IV ONE (12:33)
[2021-11-07] MEDS ORDERED: BICITRA ORAL LIQD 30ML ONE (12:33)
--- NOTE | 2021-11-07 13:52 | Anesthesia Day of Surgery ---
Anesthesia Day of Surgery - Day of Surgery Patient Examined: Yes Patient H&P Reviewed: Yes Patient is NPO: Yes
--- NOTE | 2021-11-07 13:56 | Anesthesia Consultation ---
Anesthesia Consult and Med Hx Date of service: 11/07/21 - Airway Anesthetic Teeth Evaluation: Poor ROM Head & Neck: Adequate Mental/Hyoid Distance: Adequate Mallampati Class: Class II Intubation Access Assessment: Good - Pulmonary Exam CTA: Yes - Cardiac Exam Cardiac Exam: RRR - Pre-Operative Health Status ASA Pre-Surgery Classification: ASA3 Proposed Anesthetic Plan: Epidural, Spinal - Pulmonary Hx Smoking: No Hx Asthma: Yes (last attach 2 yrs ago) Hx Respiratory Symptoms: No SOB: No COPD: No Home Oxygen Therapy: No Hx Pneumonia: No Hx Sleep Apnea: No - Cardiovascular System Hx Hypertension: No Hx Heart Attack/AMI: No Hx Angina: No - Central Nervous System Hx Neuromuscular Disorder: No (has problem remembering facts, feels "loopy during preg") Hx Seizures: No Hx Back Pain: Yes Hx Psychiatric Problems: No - Gastrointestinal Hx Gastroesophageal Reflux Disease: No - Endocrine Hx Renal Disease: No Hx End Stage Renal Disease: No Hx Insulin Dependent Diabetes: No Hx Non-Insulin Dependent Diabetes: No Hx Hypothyroidism: No Hx Hyperthyroidism: No - Hematic Hx Anemia: No Hx Sickle Cell Disease: No - Other Systems Hx Alcohol Use: No Hx Substance Use: No Hx Obesity: No
--- NOTE | 2021-11-07 14:45 | Event Note ---
Date: 11/07/21 Pt seen in triage by me earlier in prep for primary section due to breech presentation and delivery indicated due to oligohydramnios at term and per pt 43+wks. Pt verbalized to me that she had a baby here in 2019 with the incorrect date for which she wanted changed. Charge nurse is aware and supervisor self service store and I will proceed when all personnel involved is ready. Pt has consents obtained by me on the chart with risks, benefits and alternatives. FHR monitor was not on when I evaluated pt and nurse asked to place monitor on the p atient. All questions encouraged and answered.
[2021-11-07] MEDS ORDERED: ONDANSETRON 4 MG/2 ML INJ ONE ×2 (15:12→16:51)
[2021-11-07] MEDS ORDERED: ceFAZolin/STERILE WATER 2 GM/20 ML SYRINGE IV ONE (15:14)
[2021-11-07] MEDS ORDERED: SODIUM CHLORIDE 0.9% IRR 1,500 ML BOTTLE IR ONE (15:20)
[2021-11-07] MEDS ORDERED: WATER FOR IRRIG STERILE 1,500 ML BOTTLE IR ONE (15:20)
[2021-11-07] MEDS ORDERED: BUPIVACAINE/PF (0.25%) 2.5 MG/ML 30 ML VIAL INFILTRATI ONE ×2 (16:50)
[2021-11-07] MEDS ORDERED: dexAMETHasone 20 MG/5 ML VIAL ONE (16:50)
[2021-11-07] MEDS ORDERED: LACTATED RINGERS 1,000 ML ONE ×2 (16:57→17:09)
--- NOTE | 2021-11-07 17:41 | Procedure Note ---
OB Delivery Note - Delivery Date of Delivery: 11/07/21 Surgeon: BAILEY ROBINS Estimated blood loss: other (678cc per QBL) - Section Preop diagnosis: other malpresentation (breech, IUP at 43.3wks, Oligohydramnios at 1cm) section procedure: primary low transverse Disposition: floor Complications: none Narrative: Date: 11/07/21 Surgeon: Bailey Robins MD Preop Dx: IUP at 43.3wks, breech, Oligohydramnios, no care Postop Dx: same Procedure : Primary Low transverse section Anesthesia: Epidural Intake: 2500cc Output: 300cc EBL: 678cc per QBL After the risks, benefits and alternatives of procedure discussed, patient signed consents and was taken to the operating room. Pt was given epidural anesthesia. After same was adequate, patient was prepped and draped in the usual sterile fashion. Goldman catheter in place and draining concentrated urine. Pt was given prophylactic antibiotic per protocol and time out was done Pfannenstiel skin incision was made and taken sharply to the fascia and the incision extended using electrocautery. Superior edge of the fascia was grasped with marcela clamps and the rectus muscle using blunt dissection and also using electrocautery. Lower portion of the fascia also with electrocautery. Rectus muscle in the midline and Peritoneal cavity entered bluntly and extended with good visualization of the bladder. The bladder flap was created sharply using metzenbaum scissors. Lower uterine segment then entered transversely and amniotic sac entered using allys clamps. Uterine incision extended using bandage scissors. delivered, bulb suctioned, cord clamped and baby handed to waiting pediatricians. No amniotic fluid seen. Placenta then delivered completely and uterine cavity cleared of all clots and debri. The uterus was exteriorized and closed in 2 layers using 0-vicryl suture in a running locked fashion and then an additional layer of imbrication suture and figure of 8 sutures x2. Surgicel powder along the incision. Excellent hemostasis noted. The gutters were cleared of clots and debri and anterior peritoneum closed using 3-0 vicryl suture and rectus muscle reapproximated using 3-0vicryl suture. Rectus fascia closed with [0-vicryl] suture and subcutaneous tissue copiously irrigated with normal saline and re-approximated using 3-0 vicryl suture. Excellent hemostasis remains. The skin was closed with 4-0 monocryl suture and steristrips placed with pressure dressing. Sponge, lap, instrument and needle counts x2 were normal. Patient tolerated the procedure well and was taken to recovery room stable. Findings: Viable male infant, APGARS 6/8 and weight 3415g. Umbilical artery pH 7.1 and BE-6.8; Large uterus without any distinct fibroid, normal tubes and ovaries. - A at 1 minute: 6 at 5 minutes: 8 Gender: Male (wt 3415g; no amniotic fluid seen)
[2021-11-07 18:03] LABS: Cord Arterial Blood HCO3 23.4
--- NOTE | 2021-11-07 18:03 | Progress Note ---
Spinal Anesthesia Block - Spinal Anesthesia Block Start Time: 15:20 Stop Time: 15:26 Performed by:: ANAND DORAN Procedure: Patient is requesting epidural for labor pain. H&P and labs reviewed. Procedure explained, questions answered, consent obtained. Patient placed in sitting position with monitors applied. Timeout performed immediately before start of procedure. Prep/drape in usual sterile fashion. Skin localized 3 mL 1% lidocaine at L[4]-L[5] interspace. 19-gauge Tuohy epidural needle advanced to SENIA with saline at [8] cm x 1 attempt. No blood/CSF noted via epidural needle. 24g spinal needle advanced into intrathecal space until clear, free flowing CSF noted. 1.6mL 0.75% hyperbaric bupivacaine + 0.5mcg Precedex injected into intrathecal space. Spinal needle removed and epidural catheter advanced to [12] cm. Negative aspiration for blood and CSF via catheter, negative response to test dose 3 ml 1.5% lidocaine w/ epi. Sterile dressing applied followed by tape reinforcement. Patient tolerated procedure well. No immediate complications noted.
[2021-11-07 18:04] LABS: Cord Art Bld Carbxyhemoglobin 0; Cord Art Bld Methemoglobin 1.6 mmHg; Cord Arterial Oxyhemoglobin 2.7
--- NOTE | 2021-11-07 18:05 | Progress Note ---
Regional Anesthesia Block - Regional Anesthesia Block Start Time: 17:25 Stop Time: 17:29 Performed By:: ANAND DORAN Procedure: Patient consented for TAP block for post surgical pain management. Patient identified, monitors placed, and time out performed. TAP identified bilaterally via ultrasound. Skin prepped bilaterally with [chlorhexidine] and [22g stimuplex] needle advanced to the TAP. [Marcaine 0.25% 30ml and Decadron 5 mg] injected under ultrasound guidance on the [left] side. [Marcaine 0.25% 30ml and Decadron 5mg] injected under ultrasound guidance on the [right] side. Negative aspiration every 5mL, No change in heart rate or rhythm. Patient tolerated the procedure well. No apparent complications seen.
[2021-11-07 19:01] LABS: Amphetamine Screen,Urine Negative; Benzodiazepines Screen,Urine Negative; Cannabinoid Screen,Urine Negative; Cocaine Screen,Urine Negative; Methadone Screen,Urine Negative; Opiate Screen,Urine Negative
[2021-11-07] MEDS ORDERED: HYDROCORTISONE 25 MG RECTAL SUPP PR PRN (20:08)
[2021-11-07] MEDS ORDERED: IBUPROFEN 600 MG TAB PO PRN (20:08)
[2021-11-07] MEDS ORDERED: PROMETHAZINE 25 MG RECT SUPP PR PRN (20:08)
[2021-11-07] MEDS ORDERED: ONDANSETRON 4 MG/2 ML INJ IV PRN (20:08)
[2021-11-07] MEDS ORDERED: NALOXONE 0.4 MG/1 ML INJ IV PRN (20:08)
[2021-11-07] MEDS ORDERED: SENNOSIDES 8.6 MG TAB PO PRN (20:08)
[2021-11-07] MEDS ORDERED: WITCH HAZEL/ GLYCERIN PAD TP PRN (20:08)
[2021-11-07] MEDS ORDERED: LANOLIN/ZINC/DIMETHICONE (LANSINOH) 7 GM TP PRN (20:08)
[2021-11-07] MEDS ORDERED: MAGNESIUM HYDROXIDE (MOM) ORAL LIQD UDC PO PRN (20:08)
[2021-11-07] MEDS: MORPHINE 4 MG/1 ML INJ IV PRN (20:42)
[2021-11-07] MEDS ORDERED: HYDROmorphone 2 MG/1 ML INJ IV PRN (23:23)
[2021-11-08] MEDS: MORPHINE 4 MG/1 ML INJ IV PRN ×2 (01:15→04:42)
[2021-11-08 05:55] LABS: Basophils % (Auto) 0.1 % (0.0-1.8); Hemoglobin 10.9 gm/dl (10.1-14.3); Lymphocytes # (Auto) 0.9 K/mm3 (1.2-5.4); Lymphocytes % (Auto) 7.7 % (13.4-35.0); Mean Corpuscular HGB Conc 32 % (30-34); Mean Corpuscular Volume 76 fl (79-97); Monocytes # (Auto) 0.5 K/mm3 (0.0-0.8); Monocytes % (Auto) 4.2 % (0.0-7.3); Platelet Count 223 K/mm3 (140-440); Red Blood Count 4.48 M/mm3 (3.65-5.03); Red Cell Distribution Width 17.3 % (13.2-15.2)
[2021-11-08] MEDS: FERROUS SULFATE 325 MG TAB PO SCH (08:55)
[2021-11-08] MEDS: IBUPROFEN 800 MG TAB PO PRN ×2 (08:55→22:12)
[2021-11-08] MEDS: oxyCODONE /ACETAMINOPHEN 5-325MG TAB PO PRN ×3 (08:56→20:26)
[2021-11-08] MEDS: SIMETHICONE 80 MG CHEW TAB PO PRN ×2 (08:57→20:30)
--- NOTE | 2021-11-08 10:14 | Progress Note ---
Assessment and Plan POD#1 doing fair with pain control, unclear the cause of dizziness, hgb stable 1. pt educated on pain meds 2. Routine post op care all questions encouraged and answered Subjective Date of service: 11/08/21 Principal diagnosis: POD#1 C/S Interval history: pt states she is dizzy and cbc results wnl. Nurse states she got percocet just prior to my assessment. pt has passed flatus and has tolerated clears diet. Vag bleed like a period Objective - Constitutional Vitals: Vital Signs - 12hr 11/08/21 11/08/21 11/08/21 01:03 01:15 01:30 Temperature 98.2 F Pulse Rate 106 H Respiratory 20 14 Rate Blood Pressure 151/101 Blood Pressure 163/82 [Left] O2 Sat by Pulse 98 Oximetry 11/08/21 11/08/21 11/08/21 04:42 05:46 08:01 Temperature 98.2 F 98.2 F Pulse Rate 109 H 111 H Respiratory 14 20 20 Rate Blood Pressure 138/82 137/86 Blood Pressure [Left] O2 Sat by Pulse 93 98 Oximetry 11/08/21 11/08/21 08:55 08:56 Temperature Pulse Rate Respiratory 20 20 Rate Blood Pressure Blood Pressure [Left] O2 Sat by Pulse Oximetry General appearance: Present: no acute distress - Neck Neck: normal ROM - Respiratory Respiratory effort: normal - Cardiovascular Rhythm: regular Extremities: No edema - Gastrointestinal General gastrointestinal: Present: soft, non-tender, other (Dressing C/D/I) - Genitourinary Female genitourinary: other (Fundus firm 1cm below umbilicus and non-tender; lochia small) - Integumentary Integumentary: warm, dry - Neurologic Neurologic: moves all extremities - Psychiatric Psychiatric: cooperative - Labs CBC & Chem 7: 11/08/21 05:03 Labs: Abnormal lab results 11/08/21 Range/Units 05:03 WBC 11.1 H (4.5-11.0) K/mm3 MCV 76 L (79-97) fl MCH 24 L (28-32) pg RDW 17.3 H (13.2-15.2) % Lymph % (Auto) 7.7 L (13.4-35.0) % Lymph # (Auto) 0.9 L (1.2-5.4) K/mm3 Seg Neutrophils % 88.0 H (40.0-70.0) % Seg Neutrophils # 9.8 H (1.8-7.7) K/mm3 Medications & Allergies - Medications Allergies/Adverse Reactions: Allergies No Known Allergies Allergy (Unverified 04/16/20 12:37) Home Medications: Home Medications Medication Instructions Recorded Confirmed Last Taken Type Ibuprofen [Motrin] 800 mg PO Q8HR PRN 21 Days #40 11/07/21 Unknown Rx tablet oxyCODONE /ACETAMINOPHEN [Percocet 1 tab PO Q4HR PRN 21 Days #30 tab 11/07/21 Unknown Rx 5/325] Active Medications: Generic Name Dose Route Start Last Admin Trade Name Freq PRN Reason Stop Dose Admin Acetaminophen 650 mg 11/07/21 20:08 Acetaminophen 325 Mg Tab PO Q4H PRN Fever >100.5/MULLIGAN Carboprost Tromethamine 250 mcg 11/07/21 05:20 Carboprost Tromethamine 250 Mcg/1 Ml Inj IM ONCE PRN Uterine Bleeding Ferrous Sulfate 325 mg 11/08/21 10:00 11/08/21 08:55 Ferrous Sulfate 325 Mg Tab PO 325 mg QDAY [facility] Administration Hydrocortisone Acetate 25 mg 11/07/21 20:08 Hydrocortisone 25 Mg Rectal Supp [place] BID PRN Hemorrhoids Hydromorphone HCl 2 mg 11/07/21 23:23 Hydromorphone 2 Mg/1 Ml Inj IV Q4H PRN Pain , Severe (7-10) Lactated Ringer's 1,000 mls @ 125 mls/hr 11/07/21 05:30 11/07/21 14:29 Lactated Ringers IV 125 mls/hr DIRECT FAV[facility] Administration Cefazolin Sodium 2 gm/ Sodium 100 mls @ 200 mls/hr 11/07/21 22:00 11/08/21 05:22 Chloride IV 11/08/21 22:29 200 mls/hr Q8H [facility] Administration Protocol Oxytocin/Sodium Chloride 30 units in 500 mls @ 40 mls/hr 11/07/21 20:08 Pitocin/Ns 30 Unit/500ml IV TITR [facility] Protocol Ibuprofen 600 mg 11/07/21 20:08 Ibuprofen 600 Mg Tab PO Q6H PRN Pain, Mild (1-3) Ibuprofen 800 mg 11/07/21 20:08 11/08/21 08:55 Ibuprofen 800 Mg Tab PO 800 mg Q6H PRN Administration Pain, Moderate (4-6) Magnesium Hydroxide 30 ml 11/07/21 20:08 Magnesium Hydroxide (Mom) Oral Liqd Udc PO QHS PRN Constip Unrelieved By Senna Methylergonovine Maleate 0.2 mg 11/07/21 05:20 Methylergonovine Maleate 0.2 Mg/Ml Vial IM ONCE PRN Uterine Bleeding Morphine Sulfate 4 mg 11/07/21 20:08 11/08/21 04:42 Morphine 4 Mg/1 Ml Inj IV 4 mg Q4H PRN Administration Pain , Severe (7-10) Multi-Ingredient Ointment 1 applic 11/07/21 20:08 Lanolin/Zinc/Dimethicone (Lansinoh) 7 Gm TP PRN PRN dryness/cracking Naloxone HCl 0.1 mg 11/07/21 20:08 Naloxone 0.4 Mg/1 Ml Inj IV Q2MIN PRN Res Rate </= 8 or 02 SAT < 92% Ondansetron HCl 4 mg 11/07/21 20:08 Ondansetron 4 Mg/2 Ml Inj IV Q8H PRN Nausea And Vomiting Oxycodone/Acetaminophen 2 tab 11/07/21 20:08 11/08/21 08:56 Oxycodone /Acetaminophen 5-325mg Tab PO 2 tab Q4H PRN Administration Pain, Moderate (4-6) Promethazine HCl 25 mg 11/07/21 20:08 Promethazine 25 Mg Rect Supp NH Q6H PRN N/V IF NPO AND NO IV ACCESS Senna 17.2 mg 11/07/21 20:08 Sennosides 8.6 Mg Tab PO QHS PRN Constipation Simethicone 80 mg 11/07/21 20:08 11/08/21 08:57 Simethicone 80 Mg Chew Tab PO 80 mg Q6H PRN Administration Gas pain Sodium Chloride 10 ml 11/07/21 20:08 Sodium Chloride 0.9% 10 Ml Flush Syringe IV 11/08/21 20:07 PRN NR Witch [place]/Glycerin 1 each 11/07/21 20:08 Witch [place]/ Glycerin Pad TP PRN PRN Hemorrhoids/cleansing/soothing
[2021-11-08] MEDS: LACTATED RINGERS 1,000 ML IV SCH (14:30)
--- NOTE | 2021-11-09 | Event Note ---
Date: 11/08/21 nurse notified me that pt c/o burning on micturation. cath urinalysis and urine culture ordered and nurse given telephone order to do same.
[2021-11-09 06:00] LABS: Bilirubin,Urine NEG (Negative); Blood,Urine NEG (Negative); Color,Urine Yellow (Yellow); Protein,Urine <15 mg/dL mg/dL (Negative); Urobilinogen,Urine < 2.0 mg/dL (<2.0)
[2021-11-09] MEDS: oxyCODONE /ACETAMINOPHEN 5-325MG TAB PO PRN ×3 (06:33→19:44)
--- NOTE | 2021-11-09 06:57 | Progress Note ---
Assessment and Plan POD#2 C/S with dysuria present and dizziness improving 1. Send urinalysis and culture 2. Dressing abd replaced and will monitor 3. Routine PP care Subjective Date of service: 11/09/21 Principal diagnosis: POD#2 C/S Interval history: Nurse states pt c/o burning when she voids. PT states the dizziness from yesterday improved. denies N/V/F/C. vag bleed like a period Objective - Constitutional Vitals: Vital Signs - 12hr 11/08/21 11/08/21 11/08/21 20:26 21:26 22:11 Temperature Pulse Rate Respiratory 18 18 Rate Blood Pressure O2 Sat by Pulse Oximetry O2 Sat by Pulse 99 Oximetry [ Anterior Bilateral Throughout] 11/08/21 11/08/21 11/08/21 22:12 23:12 23:14 Temperature 98.2 F Pulse Rate 97 H Respiratory 18 18 20 Rate Blood Pressure 150/92 O2 Sat by Pulse 97 Oximetry O2 Sat by Pulse Oximetry [ Anterior Bilateral Throughout] 11/08/21 11/09/21 23:49 06:33 Temperature Pulse Rate 90 Respiratory 18 Rate Blood Pressure 137/91 O2 Sat by Pulse 99 Oximetry O2 Sat by Pulse Oximetry [ Anterior Bilateral Throughout] General appearance: Present: no acute distress - Neck Neck: normal ROM - Respiratory Respiratory effort: normal - Breasts Breasts: deferred - Gastrointestinal General gastrointestinal: Present: soft, non-tender - Genitourinary Female genitourinary: deferred, other (incision with dressing moist centrally thru steristrips) - Integumentary Integumentary: warm, dry - Neurologic Neurologic: moves all extremities - Psychiatric Psychiatric: cooperative - Labs CBC & Chem 7: 11/08/21 05:03 Medications & Allergies - Medications Allergies/Adverse Reactions: Allergies No Known Allergies Allergy (Unverified 04/16/20 12:37) Home Medications: Home Medications Medication Instructions Recorded Confirmed Last Taken Type Ibuprofen [Motrin] 800 mg PO Q8HR PRN 21 Days #40 11/07/21 Unknown Rx tablet oxyCODONE /ACETAMINOPHEN [Percocet 1 tab PO Q4HR PRN 21 Days #30 tab 11/07/21 Unknown Rx 5/325] Active Medications: Generic Name Dose Route Start Last Admin Trade Name Freq PRN Reason Stop Dose Admin Acetaminophen 650 mg 06/10/22 20:08 Acetaminophen 325 Mg Tab PO Q4H PRN Fever >100.5/MULLIGAN Carboprost Tromethamine 250 mcg 11/07/21 05:20 Carboprost Tromethamine 250 Mcg/1 Ml Inj IM ONCE PRN Uterine Bleeding Ferrous Sulfate 325 mg 11/08/21 10:00 11/08/21 08:55 Ferrous Sulfate 325 Mg Tab PO 325 mg QDAY FAVIAN Administration Hydrocortisone Acetate 25 mg 11/07/21 20:08 Hydrocortisone 25 Mg Rectal Supp WI BID PRN Hemorrhoids Hydromorphone HCl 2 mg 11/07/21 23:23 Hydromorphone 2 Mg/1 Ml Inj IV Q4H PRN Pain , Severe (7-10) Lactated Ringer's 1,000 mls @ 125 mls/hr 11/07/21 05:30 11/08/21 14:30 Lactated Ringers IV 125 mls/hr DIRECT FAVIAN Administration Oxytocin/Sodium Chloride 30 units in 500 mls @ 40 mls/hr 11/07/21 20:08 Pitocin/Ns 30 Unit/500ml IV TITR [facility] Protocol Ibuprofen 600 mg 11/07/21 20:08 Ibuprofen 600 Mg Tab PO Q6H PRN Pain, Mild (1-3) Ibuprofen 800 mg 11/07/21 20:08 11/08/21 22:12 Ibuprofen 800 Mg Tab PO 800 mg Q6H PRN Administration Pain, Moderate (4-6) Magnesium Hydroxide 30 ml 11/07/21 20:08 Magnesium Hydroxide (Mom) Oral Liqd Udc PO QHS PRN Constip Unrelieved By Senna Methylergonovine Maleate 0.2 mg 11/07/21 05:20 Methylergonovine Maleate 0.2 Mg/Ml Vial IM ONCE PRN Uterine Bleeding Morphine Sulfate 4 mg 11/07/21 20:08 11/08/21 04:42 Morphine 4 Mg/1 Ml Inj IV 4 mg Q4H PRN Administration Pain , Severe (7-10) Multi-Ingredient Ointment 1 applic 11/07/21 20:08 Lanolin/Zinc/Dimethicone (Lansinoh) 7 Gm TP PRN PRN dryness/cracking Naloxone HCl 0.1 mg 11/07/21 20:08 Naloxone 0.4 Mg/1 Ml Inj IV Q2MIN PRN Res Rate </= 8 or 02 SAT < 92% Ondansetron HCl 4 mg 11/07/21 20:08 Ondansetron 4 Mg/2 Ml Inj IV Q8H PRN Nausea And Vomiting Oxycodone/Acetaminophen 2 tab 11/07/21 20:08 11/09/21 06:33 Oxycodone /Acetaminophen 5-325mg Tab PO 2 tab Q4H PRN Administration Pain, Moderate (4-6) Promethazine HCl 25 mg 11/07/21 20:08 Promethazine 25 Mg Rect Supp WI Q6H PRN N/V IF NPO AND NO IV ACCESS Senna 17.2 mg 11/07/21 20:08 Sennosides 8.6 Mg Tab PO QHS PRN Constipation Simethicone 80 mg 11/07/21 20:08 11/08/21 20:30 Simethicone 80 Mg Chew Tab PO 80 mg Q6H PRN Administration Gas pain [place]/Glycerin 1 each 11/07/21 20:08 [place]/ Glycerin Pad TP PRN PRN Hemorrhoids/cleansing/soothing
[2021-11-09] MEDS: FERROUS SULFATE 325 MG TAB PO SCH (10:16)
[2021-11-09] MEDS: IBUPROFEN 800 MG TAB PO PRN ×2 (10:17→17:26)
[2021-11-09] MEDS: SIMETHICONE 80 MG CHEW TAB PO PRN (19:59)
--- NOTE | 2021-11-09 23:46 | Event Note ---
Date: 11/09/21 pt evaluated and very lengthy time taken to understand pt's complaint of bilateral leg shooting pain/numbness/and tingling more on the right side than left and pt states it affects her walking. Pt also fears that she may have blood clots after feeling a lump in her leg. Pt also c/o gas pains that improved with dulcolax suppos and simethecone. Neurology consult ordered to be done tomorrow after speaking with hospitalist on duty and venous dopplers to upper and lower extremities bilaterally ordered. Emotional support given. Abd soft and incision with steristrips C/D/I. Plan of care given and pt encouraged to ambulate in the room only if she feels steady.
--- NOTE | 2021-11-10 00:46 | Vascular Lab Report ---
DUPLEX DOPPLER LOWER EXTREMITY VEINS, BILATERAL INDICATION / CLINICAL INFORMATION: bilateral hip and leg pain, numbness, tingling. TECHNIQUE: Duplex doppler imaging was performed through the veins of both lower extremities using jhony ous compression and other maneuvers. COMPARISON: None available. FINDINGS: RIGHT COMMON FEMORAL VEIN: Negative. RIGHT FEMORAL VEIN: Negative. RIGHT POPLITEAL VEIN: Negative. RIGHT CALF VEINS: Negative. LEFT COMMON FEMORAL VEIN: Negative. LEFT FEMORAL VEIN: Negative. LEFT POPLITEAL VEIN: Negative. LEFT CALF VEINS: Negative. ADDITIONAL FINDINGS: None. IMPRESSION: 1. No sonographic evidence for DVT in either lower extremity. Signer Name: Jerome Patel II, MD Signed: 11/10/2021 12:42 AM Workstation Name: [id number]
--- NOTE | 2021-11-10 00:48 | Event Note ---
Date: 11/10/21 Lower leg venous dopplers done and same neg. Nurse states the watch repair technician will do bilateral thigh venous dopplers tomorrow, not during the night. Pt aware.
[2021-11-10] MEDS: oxyCODONE /ACETAMINOPHEN 5-325MG TAB PO PRN (05:49)
[2021-11-10] MEDS: IBUPROFEN 800 MG TAB PO PRN (08:00)
[2021-11-10] MEDS: FERROUS SULFATE 325 MG TAB PO SCH (09:05)
--- NOTE | 2021-11-10 10:31 | Vascular Lab Report ---
DUPLEX DOPPLER UPPER EXTREMITY VENOUS, LEFT INDICATION / CLINICAL INFORMATION: bilat. arm pain. TECHNIQUE: Duplex doppler imaging was performed through the veins of the left upper extremity using v enous compression and other maneuvers. COMPARISON: None available. FINDINGS: LEFT INTERNAL JUGULAR VEIN: Negative. LEFT SUBCLAVIAN VEIN: Negative. LEFT AXILLARY VEIN: Negative. LEFT BRACHIAL VEIN: Negative. LEFT FOREARM VEINS: Negative. LEFT BASILIC VEIN (SUPERFICIAL): Negative. ADDITIONAL FINDINGS: None. IMPRESSION: 1. No sonographic evidence for DVT. DUPLEX DOPPLER UPPER EXTREMITY VENOUS, RIGHT INDICATION / CLINICAL INFORMATION: bilat. arm pain. TECHNIQUE: Duplex doppler imaging was performed through the veins of the right upper extremity using venous compression and other maneuvers. COMPARISON: None available. FINDINGS: RIGHT INTERNAL JUGULAR VEIN: Negative. RIGHT SUBCLAVIAN VEIN: Negative. RIGHT AXILLARY VEIN: Negative. RIGHT BRACHIAL VEIN: Negative. RIGHT FOREARM VEINS: Negative. RIGHT BASILIC VEIN (SUPERFICIAL): Negative. ADDITIONAL FINDINGS: None. IMPRESSION: 1. No sonographic evidence for DVT. Signer Name: Oniel Polo Jr, MD Signed: 11/10/2021 10:26 AM Workstation Name: [id number]
--- NOTE | 2021-11-10 10:53 | Discharge Summary ---
Providers - Providers Date of Admission: 11/07/21 05:20 Date of discharge: 11/10/21 Attending physician: CONNIE MCGILL MD 11/08/21 07:49 Consult to Case Management [CONS] Routine Services Needed at Discharge: Semiautomatic Stitcher Operator Notified:: [phone] Phone number called:: [phone] Additional Physician Instructions: no PNC 11/09/21 23:12 Consult to Physician [CONS] Urgent Comment: Consulting Provider: KOJO MCFARLANE Physician Instructions: Reason For Exam: bilat shoot pain to right hip >left, gait wabbly Primary care physician: CONNIE MCGILL MD Hospitalization Reason for admission: other (loss of mucus plug) Delivery: Procedure: section Incision: normal, intact complications: none Discharge diagnosis: other (Primary csection for breech presentation, oligohydramnios and post dates) baby: male Condition at discharge: Good Disposition: 01 HOME / SELF CARE / HOMELESS Plan - Discharge Medications Prescriptions: Ibuprofen [Motrin] 800 mg PO Q8HR PRN 21 Days #40 tablet PRN Reason: Pain, Moderate (4-6) oxyCODONE /ACETAMINOPHEN [Percocet 5/325] 1 tab PO Q4HR PRN 21 Days #30 tab PRN Reason: Pain , Severe (7-10) - Provider Discharge Summary Activity: routine, no sex for 6 weeks, no heavy lifting 4 weeks, no strenuous exercise Diet: routine Instructions: routine Additional instructions: [] Smoking cessation referral if applicable(refer to patient education folder for contact #) [] Refer to [facility]'s [facility] Booklet Call your doctor immediately for: * Fever > 100.5 * Heavy vaginal bleeding ( >1 pad per hour) * Severe persistent headache * Shortness of breath * Reddened, hot, painful area to leg or breast * Drainage or odor from incision. * Keep incision clean and dry at all times and follow doctor's instructions regarding bathing/showering - Follow up plan Follow up: NATALIA ROBINS MD [Staff Physician] - 7 Days (to evaluated incision) Pending Studies Neuro evaluation
--- NOTE | 2021-11-10 11:07 | Event Note ---
Date: 11/10/21 (conflicting information) Evaluating patient for discharge on her POD3. She states she is no longer with numbness and tingling, but did have pain, numbness, tingling in bilateral legs, arms and shoulders. This started yesterday on the right side then travelled to her left side. Anesthesia evaluated her this morning. Attempted to contact neurology on numerous occasions. Finally a referral made for pt to follow up with Dr. Matias for her problems. All her Doppler studies are normal.
[2021-11-10 13:37] VITALS: BP 135/82
== END 2021-11-10 13:00 | disposition home or self-care (01) | DRG 787 ==
LOC: APU 02:17 → TRG 02:17 → APU 05:20 → OBSVTOIN 05:20 → TRG 08:14 → APU 16:00 → OB 20:06
PROVIDERS: ADMIT Obstetrics & Gynecology Gynecology; ATTEND Obstetrics & Gynecology Gynecology
PROC: 10D00Z1 Extraction of Products of Conception, Low, Open Approach (ICD-10-PCS; principal; 2021-11-07)
DX: O48.1 Prolonged pregnancy (principal); O41.03X0 Oligohydramnios, third trimester, not applicable or unspecified; O32.1XX0 Maternal care for breech presentation, not applicable or unspecified; Z37.0 Single live birth; Z20.822 Contact with and (suspected) exposure to COVID-19; Z3A.49 Greater than 42 weeks gestation of pregnancy
CPT/HCPCS: 36415; 76816; 76819; 80307; 81003; 82803; 83036; 85025; 85027; 86592; 86706; 86762; 86850; 86900; 86901; 87086; 87806; 88307; 93970; G0378; J3490; J7121; J0690; J1100; J2270; J2405; J2765; J7120; U0003